=== PATIENT | male | born 1975 | race Caucasian/White ===

== ENCOUNTER 2017-12-22 10:08 | Emergency (ER) | payer OTHER ==
[2017-12-22 10:15] VITALS: BP 134/87
[2017-12-22] MEDS ORDERED: Tetan/Diph/Pertus SYR(Tdap)* 0.5 ML SYR(BOOSTRIX) use SYR IM ONE (10:17)
--- NOTE | 2017-12-22 10:17 | UC ---
Skin Complaint HPI - HPI Summary HPI Summary: 42 yo male presents with cat scratch to b/l arms. He tells me that for the past week or two he has noticed a cat with a collar wandering around his property. Last night he went to the cat and tried to pick it up - the cat freaked out and started scratching him. He dropped the cat and let it go. He is here because he is worried about rabies as he was reading online and this made him anxious. Denies fever, chills, drainage. - History of Current Complaint Chief Complaint: UCSkin Time Seen by Provider: 12/22/17 10:16 Stated Complaint: SCRATCHED BY CAT Hx Obtained From: Patient Onset/Duration: Sudden Onset Skin Exposure Onset/Duration: Hours Ago Current Severity: None Pain Intensity: 0 - Allergy/Home Medications Allergies/Adverse Reactions: Allergies Allergy/AdvReac Type Severity Reaction Status Date / Time No Known Allergies Allergy Verified 12/22/17 10:16 Home Medications: Home Medications lamoTRIgine [Lamotrigine] 150 mg PO DAILY 12/22/17 [History Confirmed 12/22/17] Review of Systems Constitutional: Negative Skin: Other - Cat scratch b/l arms Respiratory: Negative Cardiovascular: Negative Neurovascular: Negative Neurological: Negative Psychological: Negative All Other Systems Reviewed And Are Negative: Yes PMH/Surg Hx/FS Hx/Imm Hx Endocrine History: Hypothyroidism Psychological History: Anxiety, Depression, Bipolar Disorder - Surgical History Surgical History: Yes Surgery Procedure, Year, and Place: ORIF RIGHT PINKY-1985. ORIF RIGHT ANKLE- 2007. HARDWARE REMOVED RIGHT ANKLE-2008. WISDOM TEETH REMOVED-2001. VASESCTOMY AND HYDROCELE-01/2010-[facility]. 05/25/12, LEFT ELBOW, [facility] - Social History Occupation: Employed Full-time Lives: With Family Alcohol Use: Rare Alcohol Amount: 1-2 PER MONTH Substance Use Type: None Smoking Status (MU): Never Smoked Tobacco Physical Exam - Summary Physical Exam Summary: GENERAL: NAD. WDWN. No pain distress. SKIN: 2.0cm linear scratch to volar right forearm. 1.0cm linear scratch to left AC. No streaking, bleeding, or drainage. No edema or surrounding erythema. NECK: Supple. Nontender. No lymphadenopathy. CHEST: No accessory muscle use. Breathing comfortably and in no distress. CV: RRR. Without m/r/g. NEURO: Alert. CN II-XII grossly intact. PSYCH: Age appropriate behavior. Triage Information Reviewed: Yes Vital Signs: Initial Vital Signs Temp 97.9 F 12/22/17 10:13 Pulse 101 12/22/17 10:13 Resp 20 12/22/17 10:13 BP 134/87 12/22/17 10:13 Pulse Ox 99 12/22/17 10:13 Course/Dx - Course Course Of Treatment: Health department was called and verified that there is no concern for rabies with stray cat scratches. He is unsure when his last tdap was , therefore this was updated today. He did not want prophylactic treatment for his scratches and will monitor the areas for any worsening signs. - Diagnoses Provider Diagnoses: Cat scratch Discharge - Sign-Out/Discharge Documenting (check all that apply): Discharge/Admit/Transfer - Discharge Plan Condition: Stable Disposition: HOME Patient Education Materials: Cat Scratch Disease (ED) Referrals: Arnold Kan MD [Primary Care Provider] - Additional Instructions: If you develop a fever, shortness of breath, chest pain, new or worsening symptoms - please call your PCP or go to the ED. Your blood pressure was mildly elevated at todays visit. Please see your primary provider within 4 weeks for recheck and re-evaluation. 1) Monitor the areas for increased redness, swelling, pain, or drainage - if you develop any of these symptoms around the scratch sites, please seek medical treatment. - Billing Disposition and Condition Condition: STABLE Disposition: Home
== END 2017-12-22 10:43 | disposition home or self-care (01) ==
LOC: UCEAST 10:08
DX: S50.812A Abrasion of left forearm, initial encounter (principal); S50.811A Abrasion of right forearm, initial encounter; W55.03XA Scratched by cat, initial encounter; Y93.9 Activity, unspecified; Y99.9 Unspecified external cause status
CPT/HCPCS: 90471; 90715; 99211; G0463